=== PATIENT | male | born 1990 | race Caucasian/White ===

== ENCOUNTER 2018-07-23 17:37 | Emergency (ER) | payer SELFPAY ==
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
[2018-07-23 18:21] VITALS: BP 117/69
== END 2018-07-23 20:55 | disposition left against medical advice (07) ==
LOC: ED 17:37
DX: Z48.01 Encounter for change or removal of surgical wound dressing (principal); T14.8XXD Other injury of unspecified body region, subsequent encounter; Z53.21 Procedure and treatment not carried out due to patient leaving prior to being seen by health care provider

== ENCOUNTER 2020-07-30 18:41 | Emergency (ER) | payer SELFPAY ==
[2020-07-30 19:53] LABS: Basophils % (Auto) 0.3 % (0.0-1.8); Eosinophils % (Auto) 0.2 % (0.0-4.3); Hematocrit 42.7 % (35.5-45.6); Lymphocytes # (Auto) 1.9 K/mm3 (1.2-5.4); Lymphocytes % (Auto) 13.2 % (13.4-35.0); Mean Corpuscular HGB Conc 33 % (32-34); Mean Corpuscular Volume 93 fl (84-94); Platelet Count 235 K/mm3 (140-440); Red Cell Distribution Width 13.7 % (13.2-15.2)
[2020-07-30 20:06] LABS: Partial Thromboplastin Time 25.2 Sec. (24.2-36.6)
[2020-07-30 20:07] LABS: Alanine Aminotransferase 21 units/L (7-56); Albumin 4.8 g/dL (3.9-5); BUN/Creatinine Ratio 11; Blood Urea Nitrogen 12 mg/dL (9-20); Calcium 9.8 mg/dL (8.4-10.2); Hemolysis Index 10
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
[2020-07-30] MEDS ORDERED: ONDANSETRON 4 MG/2 ML INJ IV ONE (20:41)
[2020-07-30] MEDS ORDERED: MORPHINE 4 MG/1 ML INJ IV ONE (20:41)
[2020-07-30] MEDS ORDERED: SODIUM CHLORIDE 0.9% 1000 ML 1,000 ML IV ONE (20:41)
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
[2020-07-30 22:35] VITALS: BP 111/69
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
== END 2020-07-31 01:08 | disposition home or self-care (01) ==
LOC: ED 18:41
DX: S52.132A Displaced fracture of neck of left radius, initial encounter for closed fracture (principal); S63.502A Unspecified sprain of left wrist, initial encounter; T07.XXXA Unspecified multiple injuries, initial encounter; R07.9 Chest pain, unspecified; Z79.899 Other long term (current) drug therapy; V29.9XXA Motorcycle rider (driver) (passenger) injured in unspecified traffic accident, initial encounter; Y92.410 Unspecified street and highway as the place of occurrence of the external cause; Y93.89 Activity, other specified; Y99.8 Other external cause status
CPT/HCPCS: 29105; 36415; 70450; 71045; 71260; 72125; 73080; 73110; 74177; 80053; 83690; 85025; 85610; 85730; 96361; 96374; 96375; 99284; J2270; J2405; J7030; Q9967